=== PATIENT | female | born 2000 | race Caucasian/White ===

== ENCOUNTER → 2019-03-30 | Outpatient (REF) | payer BC ==
[2019-03-30 19:17] LABS: PLATELET COUNT, AUTOMATED 268 K/uL (150-450)
== END ==
PROVIDERS: ATTEND Family Medicine
DX: R10.9 Unspecified abdominal pain (principal)
CPT/HCPCS: 82040; 82247; 82310; 82374; 82435; 82565; 82947; 84075; 84132; 84155; 84295; 84450; 84460; 84520; 85025; 85651; 86140; 87088; 87210; 87491; 87591

== ENCOUNTER → 2019-03-30 | Outpatient (CLI) | payer BC ==
--- NOTE | 2019-03-30 21:26 | RADIOLOGY IMAGING REPORT ---
FACILITY: [facility] PATIENT NAME: Kelsey Wells : 2000 MR: [id number] V: [id number] EXAM DATE: ORDERING PHYSICIAN: LANDRY HOPPER TECHNOLOGIST: Location: [facility] Patient: Kelsey Wells : 2000 Visit/Account:[id number] Date of Sevice: 03/30/2019 EXAMINATION: Transvaginal pelvic ultrasound with duplex Doppler evaluation. HISTORY: Right lower quadrant pain. COMPARISON: None. LMP: 2-3 months ago. Findings: Normal uterine size and morphology. The uterus is anteverted in position and measures 8.0 x 2.7 x 5. 0 cm. No focal uterine mass. The endometrium is homogeneous in appearance and measures 3 mm in double wall thickness. An IUD is p resent. The IUD is positioned abnormally low. The stem is located along the lower uterine segment and extends into the upper cervix. The arms of the IUD are poorly visualized. Normal size and appearance of both ovaries, measuring 3.0 x 2.4 x 4.2 cm on the right and 4.1 x 2.5 x 2.0 cm on the left. Both ovaries contain small follicles without any large ovarian cysts. Both ovari es demonstrate normal vascularity with Doppler evaluation. No abnormal adnexal masses. No free fluid in the pelvis. IMPRESSION: 1. Indwelling IUD is positioned abnormally low, located along the lower uterine segment and extending into the upper cervix. The arms of the IUD are poorly visualized. 2. Unremarkable adnexa. No free fluid in the pelvis. Findings were discussed with LANDRY HOPPER at 03/30/2019 9:16 PM. Report Dictated By: Butch Black MD at 03/30/2019 9:11 PM Report E-Signed By: Butch Black MD at 03/30/2019 9:19 PM WSN:[id number]
== END ==
LOC: US 19:34
PROVIDERS: ATTEND Family Medicine
DX: R10.31 Right lower quadrant pain (principal)
CPT/HCPCS: 76856